=== PATIENT | female | born 1990 | race Caucasian/White ===

== ENCOUNTER 2019-02-07 20:07 | Emergency (ER) | payer MEDICAID ==
[~2019-02-07] VITALS: Ht 170.2 cm; Wt 90.1 kg
[~2019-02-07 20:07] MED LIST: SERT25TA PO
[2019-02-07 21:16] VITALS: BP 107/66
--- NOTE | 2019-02-07 21:18 | NUR ---
FEDERICO IN ROOM. CLAIMING SHE "MISSED THE VEIN WHEN INJECTING METH". IN ROOM WITH MED STUDENT. CALL LIGHT WITHIN REACH
[2019-02-07] MEDS ORDERED: CEPHALEXIN 500 MG CAPSULE ONE (21:50)
[2019-02-07] MEDS ORDERED: SULFAMETH./TRIMETHOPRIM DS 800MG/160MG TABLET ONE (21:50)
[2019-02-07] MEDS ORDERED: IBUPROFEN 600 MG TABLET ONE (21:51)
[2019-02-07] MEDS ORDERED: OXYcodone/APAP 5/325MG TABLET ONE (21:51)
[2019-02-07] MEDS ORDERED: DIPH,PERTUSS(ACELL),TET VAC/PF 0.5 ML IM-VACC ONE ×2 (21:51→22:00)
[2019-02-07] MEDS ORDERED: LIDOCAINE-MPF 1%, 5ML ONE (21:53)
[2019-02-07] MEDS ORDERED: OXYcodone/APAP 5/325MG TABLET PO ONE (22:00)
[2019-02-07] MEDS ORDERED: IBUPROFEN 600 MG TABLET PO ONE (22:00)
[2019-02-07] MEDS ORDERED: SULFAMETH./TRIMETHOPRIM DS 800MG/160MG TABLET PO ONE (22:00)
[2019-02-07] MEDS ORDERED: CEPHALEXIN 500 MG CAPSULE PO ONE (22:00)
[2019-02-07] MEDS ORDERED: LIDOCAINE 2%, 20ML SQ ONE (22:00)
--- NOTE | 2019-02-07 22:04 | NUR ---
REPORT GIVEN TO MAXIMUS HWANG
--- NOTE | 2019-02-07 22:16 | NUR ---
ASSUMED CARE FOR THIS PT.
== END 2019-02-07 22:59 | disposition home or self-care (01) ==
LOC: ED 22:53
DX: L02.414 Cutaneous abscess of left upper limb (principal); L01.01 Non-bullous impetigo; F15.10 Other stimulant abuse, uncomplicated; F17.200 Nicotine dependence, unspecified, uncomplicated
CPT/HCPCS: 10060; 90471; 90715; 99284; J3490